=== PATIENT | male | born 1985 | race Caucasian/White ===

== ENCOUNTER 2019-12-30 01:08 | Emergency (ER) | payer OTHER ==
[~2019-12-30] VITALS: Ht 182.9 cm; Wt 95.5 kg
[2019-12-30] MEDS ORDERED: KETOROLAC 30 MG/1 ML ONE (01:26)
[2019-12-30] MEDS ORDERED: KETOROLAC 30 MG/1 ML IM ONE (01:30)
[2019-12-30 02:04] VITALS: BP 154/107
== END 2019-12-30 03:07 | disposition home or self-care (01) ==
LOC: ED 02:21
DX: G89.11 Acute pain due to trauma (principal); M25.512 Pain in left shoulder
CPT/HCPCS: 73030; 96372; 99283; J1885